=== PATIENT | male | born 1950 | race Caucasian/White ===

== ENCOUNTER → 2024-11-02 | Day surgery (SDC) | payer MEDICARE, OTHER ==
[~2024-11-02] MED LIST: LIDOCAINE 1% (10MG/ML) FOR IV START INTRADERMA PRN; PROPOFOL 10 MG/ML 20 ML VIAL IV ONE
[2024-11-02 10:41] VITALS: TEMP 97.7
[2024-11-02] MEDS: LACTATED RINGERS 1,000 ML IV ONE (10:41)
[2024-11-02] MEDS: LACTATED RINGERS 1,000 ML IV SCH (10:50)
[2024-11-02 12:19] VITALS: BP 113/73; PULSE 79; RESP 18
--- NOTE | 2024-12-06 16:05 | P.OP ---
Date of Procedure: 11/02/24 Preoperative Diagnosis: 1. Screening Colonscopy 2. Family History of Colon Cancer Postoperative Diagnosis: 1. Sessile Polyp 2. Suboptimal Prep Procedure(s) Performed: Colonoscopy with Biopsy Anesthesia: MAC Surgeon: Joel Anna Pathology: other (Polyp Biopsy) Condition: stable Disposition: PACU Description of Procedure: After informed consent was obtained, the patient was placed in the left lateral position. The patient was sedated. Monitoring was provided throughout the entire procedure. Digital rectal exam was performed revealing normal sphincter tone and no external hemorrhoids. The colonoscope was inserted into rectum and advanced under direct visualization, without difficulty, to the cecum, where the cecal strap, appendiceal orifice, and the ileocecal valve were identified. The quality of the preparation was suboptimal. The colonoscope was then withdrawn while carefully examining the mucosa. The colonic mucosa appeared normal with normal vascularity and haustral markings. No masses, AVM/s or diverticula were seen. There was a sessile polyp noted and cold biopsy was performed. On retroflexed view in the rectum, there were no internal hemorrhoids. The endoscope was removed and the procedure terminated. The patient needs repeat colonoscopy in 2-3 years. The patient tolerated the procedure well without complications.
== END ==
LOC: ORWHC2ENDO 10:10
PROVIDERS: ATTEND Surgery
DX: Z12.11 Encounter for screening for malignant neoplasm of colon (principal); Z80.0 Family history of malignant neoplasm of digestive organs; D12.5 Benign neoplasm of sigmoid colon
CPT/HCPCS: 88305; 45380; J2704